=== PATIENT | male | born 2000 | race Caucasian/White ===

== ENCOUNTER 2024-09-15 19:28 | Emergency (ER) | payer BC, OTHER, SELFPAY ==
--- NOTE | 2024-09-15 20:11 | ERPHSYRPT ---
- History of Present Illness Time Seen by Provider: 09/15/24 20:11 Source: patient, family Exam Limitations: no limitations Physician History: This is a right-handed white male patient who accidentally lacerated the palmar aspect of right hand digits 234 superficially and transversely. His tetanus status is up-to-date. Patient was using a knife to cut open bread. Occurred: just prior to arrival Method of Injury: other (Accidentally cut himself with a knife) Quality: burning Severity of Pain-Max: mild Severity of Pain-Current: mild Extremities Pain Location: hand: right, 2nd finger: right, 3rd finger: right, 4th finger: right Modifying Factors: Improves With: movement Associated Symptoms: none Allergies/Adverse Reactions: No Known Drug Allergies Allergy (Verified 09/15/24 20:09) Travel Risk - International Travel Have you traveled outside of the country in past 3 weeks: No - Emerging Infectious Disease Are you exhibiting symptoms associated with any current EIDs: No - Review of Systems Constitutional: No Symptoms Eyes: No Symptoms Ears, Nose, & Throat: No Symptoms Respiratory: No Symptoms Cardiac: No Symptoms Abdominal/Gastrointestinal: No Symptoms Genitourinary Symptoms: No Symptoms Musculoskeletal: No Symptoms Skin: Other (3 separate lacerations total length 3 cm. 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 - Past Surgical History Past Surgical History: No - Social History Smoking Status: Never smoker Drug Use: none - Nursing Vital Signs Nursing Vital Signs: Initial Vital Signs Temperature 96.2 F 09/15/24 20:09 Pulse Rate 74 09/15/24 20:09 Respiratory Rate 18 09/15/24 20:09 Blood Pressure 136/77 09/15/24 20:09 O2 Sat by Pulse Oximetry 97 09/15/24 20:09 Pain Scale Pain Intensity 0 - Physical Exam General Appearance: no apparent distress, alert, anxiety Eyes, Ears, Nose, Throat Exam: normal ENT inspection, moist mucous membranes Neck Exam: normal inspection, non-tender, supple, full range of motion Cardiovascular/Respiratory Exam: chest non-tender, no respiratory distress Abdominal Exam: non-tender Back Exam: normal inspection, normal range of motion, No CVA tenderness, No vertebral tenderness Shoulder Exam: normal inspection, non-tender, no evidence of injury, No normal ROM Elbow/Forearm Exam: normal inspection, non-tender, no evidence of injury, normal ROM Wrist Exam: normal inspection, non-tender, no evidence of injury, normal ROM Hand Exam: normal ROM, laceration (Midlevel right hand skin lacerations superficial digits 2, 3, 4. Tendon function intact. Neurovascularly intact) Neuro/Tendon Exam: normal sensation, normal motor functions, normal tendon functions, no evidence tendon injury Mental Status Exam: alert, oriented x 3, cooperative Skin Exam: normal color, warm, dry, laceration (The above extremity section/hand) SpO2 Interpretation: normal O2 Delivery: Room Air Procedures - Laceration/Wound Repair Right Volar Finger Time of Procedure: 21:10 Wound Location: Right, hand (Palmar aspect of digits 234) Wound Length (cm): 3 (Total of all 3 laceration length) Wound's Depth, Shape: superficial, linear, into subcut Wound Explored: clean Irrigated: Yes Hibiclens Prep: Yes Wound Repaired With: Steri-strips, Dermabond Progress: 09/15/24 21:26 No complications, patient tolerated the procedure well - Course Nursing assessment & vital signs reviewed: Yes Ordered Tests: Medication Summary Discontinued Medications Generic Name Dose Route Start Last Admin Trade Name Freq PRN Reason Stop Dose Admin Cephalexin HCl 500 mg 09/15/24 21:20 Cephalexin Mh500 Mg Capsule PO 09/15/24 21:21 STAT ONE - Progress Progress: improved Progress Note: 09/15/24 21:27 My medical decision making and the assignment of low complexity to this patient's medical issue today is based on review of the patient's past medical history, review the patient's medication list, reviewed patient drug allergy list, history present illness and physical findings on examination. The workup does not require laboratory or radiographic studies. Counseled pt/family regarding: diagnosis Medical Desision Making - Independent Historian Additional History obtained from: Spouse - Diagnostic Testing Diagnostic test were ordered, analyzed, and reviewed by me: No - Risk of complications Minimal Risk: Minimal risk of morbidity - Departure Departure Disposition: Home Clinical Impression: Laceration of finger of right hand Condition: Stable Critical Care Time: No Referrals: DOCTOR,NO FAMILY [Primary Care Provider] - Follow up/PCP as directed Additional Instructions: Keep the top Band-Aid on until the evening of 09/16/2024. At that time you may remove the top Band-Aid and leave the Steri-Strips in place. Once the top Band- Aid is off, rinse the site daily with soapy water. Blot dry or use a [employer]. Take your antibiotics as prescribed. As the Steri-Strips start curling up, trim them with scissors. If there are no contraindications, use Tylenol and ibuprofen for pain control Prescriptions: Cephalexin Mh 500 mg [Keflex 500 mg] 500 mg PO TID #15 cap
[2024-09-15 20:15] VITALS: RESP 18; TEMP 96.2
[2024-09-15 21:15] VITALS: O2SAT 96
[2024-09-15] MEDS ORDERED: KEFLEX 500 MG ONE (21:22)
[2024-09-15] MEDS: KEFLEX 500 MG PO ONE (21:23)
[2024-09-15 21:32] VITALS: BP 113/60; PULSE 78
== END 2024-09-15 21:35 | disposition home or self-care (01) ==
LOC: ED 19:28
DX: S61.411A Laceration without foreign body of right hand, initial encounter (principal); W26.0XXA Contact with knife, initial encounter
CPT/HCPCS: 12002; 99282; 99283; A9270-GY